=== PATIENT | female | born 1990 | race Caucasian/White ===

== ENCOUNTER 2016-08-13 06:53 | Emergency (ER) | payer BC ==
--- NOTE | 2016-08-13 07:22 | ERNOTE ---
ER Female HPI Stated Complaint: ABD PAIN Presenting Symptoms: vaginal bleeding Time Seen by Provider: 08/13/16 07:13 Source: patient Exam Limitations: no limitations Immunizations: IMMUNIZATION HX History of Influenza Vaccine No Hx Pneumococcal Vaccination No Allergies/Adverse Reactions: Allergies No Known Allergies Allergy (Verified 08/13/16 07:01) Home Medications: HOME MEDICATIONS Ibuprofen [Motrin] 800 mg PO QID 09/26/14 [Last Taken 09/26/14 0400] Etonogestrel [Nexplanon] 05/30/15 [Last Taken Unknown] Ibuprofen [Motrin] 600 mg PO Q6H PRN #40 tab 05/30/15 [Last Taken Unknown] - History of Present Illness Narrative: pt is on day 5 of a heavy peroid. She contacted her trash hauler and was prescribed OC. She has taken 2 days of this without improvement. Has normal quality of flow with increased cramping and volume Timing: Present: constant, getting worse Quality: Present: moderate, cramping Onset Location: Present: suprapubic Radiation: Present: none Activities at Onset: Present: none Prior Treatment: Present: treated by physician Review of Systems - Review of Systems Constitutional: Absent: recent illness EYE: Present: no symptoms reported ENT: Present: no symptoms reported Respiratory: Present: no symptoms reported Cardiology: Present: no symptoms reported Gastrointestinal/Abdominal: Present: abdominal pain Genitourinary: Absent: frequency, pain, dysuria Musculoskeletal: Absent: back pain Skin: Present: no symptoms reported Neurological: Present: no symptoms reported Endocrine: Present: no symptoms reported - Patient's Past Medical History Patient History - Medical: No pertinent hx Patient History - Cancer: No Hx of Cancer Patient History - Surgical Procedures: T & A, Other - Family History Mother Family History - Cardiac/Respiratory: Hypertension, Hyperlipidemia Father Family History - Medical: No pertinent hx - Social History Living Situations: home Alcohol Use: none Drug Use: none Physical Exam - Physical Exam General Appearance: Present: wd/wn, alert, mild distress Ears, Nose, Throat: Present: normal ENT inspection, hearing grossly normal Respiratory: Present: no respiratory distress, no accessory muscle use Gastrointestinal/Abdominal: Present: tenderness - mild midline up to above the umbilicus. Absent: guarding, rebound Back Exam: Present: normal inspection, normal range of motion, no CVA tenderness Extremity Exam: Present: normal inspection, non-tender, no edema, normal range of motion Neurological Exam: Present: alert, oriented, normal mood/affect, no motor/ sensory deficits Skin Exam: Present: normal color, warm/dry ED Progress - Results and Orders Patient's Lab Results:: I have reviewed the patient's lab results. Results and Orders: Laboratory Tests 08/13/16 08/13/16 08/13/16 07:28 07:28 07:28 WBC 9.0 Hgb 13.3 Hct 38.6 Plt Count 250 PT 10.7 INR (Anticoag Therapy) 1.03 PTT ([place]) 27.2 - Vital Signs Patient's Vital Signs:: I have reviewed the patient's vital signs. Vital Signs: Vital Signs 08/13/16 06:57 Temperature 97.4 C H Pulse Rate 98 Respiratory 12 Rate Blood Pressure 127/75 O2 Sat by Pulse 98 Oximetry - Progress/Reassessment Chief Complaint: Genitourinary Problem Departure Clinical Impression: Dysfunctional uterine bleeding - Departure Disposition: Home Follow Up Needed Condition: Good Instructions: Abnormal Uterine Bleeding Additional Instructions: You may take ibuprofen 800 mg 4 times a day for a few days. See your trash hauler as soon as possible
[2016-08-13 07:35] LABS: Hematocrit 38.6 % (37.0-47.0); Hemoglobin 13.3 gm/dL (12.5-16.0); Mean Cell Volume 91.5 fl (78-100); Mean Corpuscular Hemoglobin 31.5 pg (27-31); Mean Corpuscular Hgb Conc 34.5 g/dl (32-36); Mean Platelet Volume 9.6 fl (6.0-9.5); Neutrophil # 5.2 K/mm3 (1.3-6.0); Neutrophil % 57.8 % (42-75.0); Platelet Count 250 K/mm3 (150-450); Red Blood Count 4.22 M/mm3 (4.2-5.4); Red Cell Distribution Width 11.9 % (11.5-14.0)
[2016-08-13 07:55] LABS: Prothrombin Time (Patient) 10.7 Seconds (9.4-11.4)
[2016-08-13 08:01] LABS: INR 1.03 INR (0.90-1.10)
[2016-08-13 08:13] VITALS: BP 124/88
== END 2016-08-13 09:08 | disposition home or self-care (01) ==
LOC: ER 06:53
DX: N93.8 Other specified abnormal uterine and vaginal bleeding (principal)

== ENCOUNTER 2017-08-18 12:08 | Emergency (ER) | payer BC ==
[2017-08-18] MEDS ORDERED: CLONIDINE HCL 0.1 MG TABLET PO ONE (12:41)
--- NOTE | 2017-08-18 12:50 | ERNOTE ---
Medical Problem HPI - General Chief Complaint: General Assessment Time Seen by Provider: 08/18/17 12:12 - Immun/Allergies/Home Medications Immunizations: IMMUNIZATION HX Immunizations Up to Date Yes History of Influenza Vaccine No Hx Pneumococcal Vaccination No Allergies/Adverse Reactions: Allergies No Known Allergies Allergy (Verified 08/18/17 12:18) Home Medications: HOME MEDICATIONS Clonidine HCl [Catapres] 0.1 mg PO TID #15 tablet 08/18/17 [Last Taken Unknown] hydrOXYzine PAMOATE [Vistaril] 1 - 2 cap PO Q6H PRN #20 cap 08/18/17 [Last Taken Unknown] - History of Present History Narrative: Patient is here as she is withdrawing from opiods. She had her wisdom teeth out two years ago, was given narcotics and "liked them too much". She has been obtaining them illegally since, up to 10-15 pills daily whatever was available. Last dose yesterday around 16:00. She told her mom about the addiction and would like to get off the medications, has chills, is restless and anxious, watery diarrhea multiple times Review of Systems - Review of Systems Constitutional: Present: See HPI, chills. Absent: recent illness ENT: Absent: nose congestion, sore throat Respiratory: Absent: shortness of breath Cardiology: Absent: chest pain Gastrointestinal/Abdominal: Present: See HPI, diarrhea. Absent: nausea, vomiting, abdominal pain Genitourinary: Present: no symptoms reported Musculoskeletal: Absent: back pain Skin: Present: other - skin crawling Neurological: Absent: headache Psych: Present: anxiety - Patient's Past Medical History Patient History - Medical: Other - drup abuse Patient History - Cardiac/Respiratory: No pertinent hx Patient History - Cancer: No Hx of Cancer Patient History - Surgical Procedures: T & A, Other Patient History - Other: None - Family History Mother Family History - Cardiac/Respiratory: Hypertension, Hyperlipidemia Father Family History - Medical: No pertinent hx - Social History Living Situations: home Abuse History: No History of abuse Psych History: No pertinent hx Smoking Status: Current every day smoker Do you dip or chew tobacco: No Alcohol Use: occasionally Drug Use: marijuana, other - Immunizations Immunizations Up to Date: Yes Hx Pneumococcal Vaccination: No History of Influenza Vaccine: No Physical Exam - Physical Exam General Appearance: Present: wd/wn, alert, no apparent distress, anxious Head Exam: Present: normal inspection Eye Exam: Normal inspection: bilateral, PERRL: bilateral Ears, Nose, Throat: Present: normal ENT inspection, normal pharynx Neck: Present: normal inspection Respiratory: Present: no respiratory distress, normal breath sounds, no accessory muscle use, lungs clear Cardiovascular/Chest: Present: regular rate, rhythm, no murmur Gastrointestinal/Abdominal: Present: normal bowel sounds, nontender, nondistended, soft Extremity Exam: Present: normal inspection Neurological Exam: Present: alert, oriented, normal mood/affect Skin Exam: Present: normal color, warm/dry ED Progress - Vital Signs Patient's Vital Signs:: I have reviewed the patient's vital signs. Vital Signs: Vital Signs 08/18/17 08/18/17 12:13 12:24 Temperature 36.8 C Pulse Rate 78 72 Respiratory 17 12 Rate Blood Pressure 154/103 135/89 O2 Sat by Pulse 99 99 Oximetry - Progress/Reassessment Chief Complaint: General Assessment Progress Note-Subjective: 08/18/17 13:45 gave list of counselling services and support groups appointment in clinic was made COWS score of 5 Departure Clinical Impression: Acute narcotic withdrawal - Departure Disposition: Home self-care Condition: Good Instructions: Opioid Withdrawal Referrals: Robert Carr DO [Staff Physician] - 08/25/17 3:00 pm Prescriptions: Clonidine HCl [Catapres] 0.1 mg PO TID #15 tablet hydrOXYzine PAMOATE [Vistaril] 1 - 2 cap PO Q6H PRN #20 cap PRN Reason: Anxiety
[2017-08-18] MEDS ORDERED: CLONIDINE HCL 0.1 MG TABLET ONE (13:04)
[2017-08-18 13:35] VITALS: BP 117/76
== END 2017-08-18 13:48 | disposition home or self-care (01) ==
LOC: ER 12:08
DX: F19.939 Other psychoactive substance use, unspecified with withdrawal, unspecified (principal); F17.200 Nicotine dependence, unspecified, uncomplicated

== ENCOUNTER 2017-09-23 21:41 | Emergency (ER) | payer BC ==
--- NOTE | 2017-09-23 22:26 | ERNOTE ---
Headache ER HPI - General Presenting Symptoms: headache Time Seen by Provider: 09/23/17 21:53 Source: patient Exam Limitations: no limitations - Immun/Allergies/Home Medications Immunizations: IMMUNIZATION HX Immunizations Up to Date Yes History of Influenza Vaccine Yes Hx Pneumococcal Vaccination No Allergies/Adverse Reactions: Allergies No Known Allergies Allergy (Verified 09/23/17 21:50) Home Medications: HOME MEDICATIONS NK [No Home Medication] 09/23/17 [Last Taken Unknown] - Pain Pain Score: 7 - History of Present Illness Narrative: Pt states she awoke with a left sided headache 3 days ago. She was seen at [facility] and given a "migraine shot" without benefit. Headache continues despite OTC migraine medications. Pt also experiences pressure behind her eye and some blurring of the left eye. Activity at onset: other - sleeping Timing of Headache: other - during sleep Context Headache: Present: new onset Quality: Present: pressure, throbbing Severity Maximum: Present: severe Severity-Currently: Present: severe Headache frequency: Present: no recent headache Modifying Factors - (Improves): Reports: other - nothing Associated Symptoms: Denies: fever/chills, nausea, vomiting Review of Systems - Review of Systems Constitutional: Absent: fever, chills EYE: Present: blurred vision - left ENT: Present: nose congestion - mild Respiratory: Present: no symptoms reported Cardiology: Present: no symptoms reported Gastrointestinal/Abdominal: Absent: nausea, vomiting, abdominal pain Genitourinary: Absent: frequency, dysuria Musculoskeletal: Present: neck pain. Absent: back pain Skin: Absent: rash Neurological: Present: other - radiation of pain to the back of her head when palpating the forehead Endocrine: Absent: excessive sweating, flushing Hematologic/Lymphatic: Present: no symptoms reported Psych: Present: no symptoms reported - Patient's Past Medical History Patient History - Medical: No pertinent hx Patient History - Cardiac/Respiratory: No pertinent hx Patient History - Cancer: No Hx of Cancer Patient History - Surgical Procedures: T & A Patient History - Other: None LMP (females 10-50): now - Family History Mother Family History - Cardiac/Respiratory: Hypertension, Hyperlipidemia Father Family History - Medical: No pertinent hx - Social History Living Situations: home Abuse History: No History of abuse Psych History: No pertinent hx Smoking Status: Current every day smoker Patient requests Smoking Cessation Consult: No Initiate information on Smoking Cessation: No Alcohol Use: occasionally Drug Use: marijuana - Immunizations Immunizations Up to Date: Yes Hx Pneumococcal Vaccination: No History of Influenza Vaccine: Yes Physical Exam - Physical Exam General Appearance: Present: wd/wn, alert, no apparent distress Eye Exam: PERRL: bilateral, EOMI: bilateral, Photophobia: left - with fundus exam, fundus appears normal Ears, Nose, Throat: Present: normal ENT inspection Neck: Present: normal inspection, nontender Respiratory: Present: no respiratory distress, no accessory muscle use Back Exam: Present: normal inspection, normal range of motion Extremity Exam: Present: normal inspection, normal range of motion, no edema Neurological Exam: Present: alert, oriented, normal mood/affect, no motor/ sensory deficits Skin Exam: Present: normal color, warm/dry Lymphatic Exam: Present: no adenopathy ED Progress - Vital Signs Vital Signs: Vital Signs 09/23/17 21:44 Temperature 36.6 C Pulse Rate 71 Respiratory 20 Rate Blood Pressure 117/75 O2 Sat by Pulse 100 Oximetry - CT/Ultrasound CT/Ultrasound Narrative: CT head: No midline shift, ventriculomegaly or acute hemorrhage. No evidence for acute ischemia - Progress/Reassessment Chief Complaint: Headache Departure Clinical Impression: Migraine headache without aura Qualifiers: Status migrainosus presence: without status migrainosus Intractability: intractable Qualified Code(s): G43.019 - Migraine without aura, intractable, without status migrainosus - Departure Disposition: Home Follow Up Needed Condition: Good Instructions: Migraine Headache, [id number] Additional Instructions: You may take the headache medication you were given at 12:40 if your headache persists. Referrals: Robert Carr DO [Primary Care Provider] -
[2017-09-23] MEDS ORDERED: SUMAtriptan SUCCINATE 6 MG/0.5 ML VIAL SC ONE ×2 (22:36→22:38)
[2017-09-23] MEDS ORDERED: SUMAtriptan SUCCINATE 50 MG TABLET ONE (23:17)
[2017-09-23] MEDS ORDERED: SUMAtriptan SUCCINATE 50 MG TABLET PO ONE (23:45)
[2017-09-24 00:08] VITALS: BP 126/97
== END 2017-09-23 23:41 | disposition home or self-care (01) ==
LOC: ER 21:41
DX: G43.019 Migraine without aura, intractable, without status migrainosus (principal); F17.200 Nicotine dependence, unspecified, uncomplicated